=== PATIENT | male | born 1950 | race Caucasian/White ===

== ENCOUNTER 2018-05-29 21:00 | Inpatient (IN) | payer OTHER ==
[~2018-05-29] VITALS: Ht 175.3 cm; Wt 73.5 kg
[2018-05-29 20:25] VITALS: BP 147/76
[2018-05-29 21:00] VITALS: BP 147/76
[~2018-05-29 21:00] MED LIST: LISI40TA4 PO; METH10TA2 PO; NEBI10TA2 PO
--- NOTE | 2018-05-29 21:00 | NUR ---
GPS NOTES. RECEIVED PT. FROM ([facility]). PT. ARRIVED ON THE UNIT AT 2024 VIA WHEELCHAIR. PATIENT TRANSFERRED ON A 5150 HOLD DUE TO DTS. PER HOLD PT. 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 UPON FACE TO FACE ASSESSMENT, APPEARS TO REFLECT THE PRESENTATION OF THE PATIENT. PATIENT IS CURRENTLY SITTING ON BED. NO COMPLAINTS OF PAIN AND NO SIGNS OF ACUTE DISTRESS NOTED AT THIS TIME. PATIENT'S BREATHING IS UNLABORED WITH EQUAL FALL AND RISE OF THE CHEST. PATIENT IS ORIENTED X 3 AND 98% ON ROOM AIR. PATIENT IS STEADY/AMBULATORY AND CONTINENT. THE PATIENT HAS NO NEEDS AT THIS TIME. UPON ARRIVING ON THE UNIT THE PATIENT IS NOTED TO BE DEPRESSED AND AND ANXIOUS. ENDORSES HOPELESSNESS BUT DENIES ANY SI/HI/ OR HALLUCINATIONS. COOPERATED WITH ADMISSION ASSESSMENT, SKIN CLEAR. THE PATIENT IS UNDER THE CARE OF DR. VILLALPANDO AND THE MEDICAL CARE OF DR. GIRFFIN. PATIENT'S BELONGING INVENTORIED AND CHECKED FOR CONTRABAND. PATIENT'S ADVANCED DIRECTIVE PREFERENCES, IMMUNIZATIONS QUESTIONNAIRE AND NECESSARY PAPERWORK PLACED IN THE PT'S CHART. BED IS LOCKED AND LOW, BEDSIDES RAILS ARE UP X2 FOR SAFETY. WILL CONTINUE TO MONITOR Q15MNS, WITH THE HELP OF STAFF, FOR SAFETY.
[2018-05-29] MEDS ORDERED: ACETAMINOPHEN 325 MG TABLET PO PRN ×2 (22:30)
[2018-05-29] MEDS ORDERED: MAG HYDROX/AL HYDROX/SIMETH 30 ML UDC PO PRN ×2 (22:30)
[2018-05-29] MEDS ORDERED: MAGNESIUM HYDROXIDE 30 ML UDC PO PRN ×2 (22:30)
[2018-05-29] MEDS ORDERED: TEMAZEPAM 15 MG CAPSULE ONE (22:34)
[2018-05-29] MEDS: TEMAZEPAM 7.5 MG CAPSULE PO PRN (22:36)
[2018-05-29] MEDS ORDERED: HYDR-552 PO (23:07)
[2018-05-29] MEDS ORDERED: HYDR-3976 PO (23:07)
[2018-05-29] MEDS ORDERED: CLON0.1T PO (23:07)
--- NOTE | 2018-05-30 03:56 | NUR ---
INFORMATION SENT:FACESHEET , ADMIT ORDER , H&P , UR 05/28 , DISCHARGE SUMMARY TO :[facility] [phone]
[2018-05-30 07:18] LABS: CHOLESTEROL 129 mg/dL (<200); HDL CHOLESTEROL 43 mg/dL (40-60); LDL 77 mg/dL (0-99); TRIGLYCERIDES 83 mg/dL (30-150)
[2018-05-30 08:00] VITALS: BP 133/73
[2018-05-30] MEDS: LISINOPRIL (20MG) 20 MG TABLET PO SCH (08:37)
[2018-05-30] MEDS: LORAZEPAM 0.5 MG TABLET PO PRN ×3 (08:40→19:07)
--- NOTE | 2018-05-30 08:40 | NUR ---
RN NOTERS ADMINISTERED ATIVAN 1 MG PO PRN FOR ANXIETY, PER PATIENT REQUEST, V/S TAKEN BP- 133/73, P-70, CONTINUED MONITORING.
[2018-05-30] MEDS ORDERED: METHADONE HCL 10 MG TABLET PO SCH ×2 (09:00)
[2018-05-30] MEDS: HYDROCODONE/APAP 10/325MG 1 EA TABLET PO PRN ×4 (09:12→21:33)
--- NOTE | 2018-05-30 09:12 | NUR ---
RN NOTES ADMINISTERED NARCO 10/325 MG PO PRN FOR GENERALIZED PAIN 10/10 PER PATIENT REQUEST, V/S TAKEN 135/76, P-74, ENCOURAGED TO INCREASE FLUID INTAKE. CONTINUED MONITORING.
[2018-05-30] MEDS ORDERED: CLONIDINE HCL 0.1 MG TABLET PO PRN (09:30)
[2018-05-30] MEDS ORDERED: HYDROCODONE/APAP 5/325MG 1 EACH TABLET PO PRN (09:30)
[2018-05-30 09:36] LABS: BASOPHILS % (AUTO) 0.7 % (0.0-2.0); EOSINOPHILS % (AUTO) 3.5 % (0.0-6.0); HEMATOCRIT 37 % (39-51); HEMOGLOBIN 12.7 g/dL (13.5-17.5); LYMPHOCYTES # (AUTO) 2.2 /CMM (0.8-4.8); LYMPHOCYTES % (AUTO) 37.9 % (20.0-44.0); MEAN CORPUSCULAR HEMOGLOBIN 32 PG (26.0-33.0); MEAN CORPUSCULAR HGB CONC 34 g/dl (31.0-36.0); MEAN CORPUSCULAR VOLUME 94 fL (80-96); MONOCYTES # (AUTO) 0.4 /CMM (0.1-1.30); MONOCYTES % (AUTO) 6.7 % (2.0-12.0); NEUTROPHILS % (AUTO) 51.2 % (43.0-81.0); PLATELET COUNT (AUTO) 139 /CMM (150-450); RED BLOOD CELL COUNT(AUTO) 3.97 MIL/uL (4.5-6.0); WHITE BLOOD COUNT (AUTO) 5.8 K/uL (4.3-11.0)
[2018-05-30 09:58] LABS: ALBUMIN 3.5 g/dL (3.4-5.0); BILIRUBIN,TOTAL 0.4 mg/dL (0.2-1.0); CALCIUM, SERUM 8.1 mg/dL (8.5-10.1); CREATININE 1.1 mg/dL (0.6-1.3); POTASSIUM 3.5 mmol/L (3.5-5.1); TOTAL PROTEIN, SERUM 6.6 g/dL (6.4-8.2)
--- NOTE | 2018-05-30 11:16 | NUR ---
UR Note: SW received a call from Julee ([phone]) from [facility] about sending over clinicals.
--- NOTE | 2018-05-30 11:16 | NUR ---
UR Note: JEANNINE faxed a clinical to Julee from [facility] to the fax number: [phone].
--- NOTE | 2018-05-30 13:29 | NUR ---
rn notes administered narco 10/325 mg po prn for generalized pain 07/14 per patient request, v/s taken bp-137/75, p-49, encouraged to increase fluid intake.
--- NOTE | 2018-05-30 14:38 | NUR ---
Initial Discharge Plan: Pt currently resides at [address] [place] [address]; ([phone]) with his partner and contact representative, Carmen Love ([phone]). Per pt and per his partner, they would both like the pt to return to his home upon discharge. JEANNINE will work with the pt and the MD regarding appropriate discharge planning. SW will form a safe and proper discharge.
--- NOTE | 2018-05-30 14:39 | NUR ---
JEANNINE called Carmen Love ([phone]), the pt's partner, and she stated that she wants the pt to return home upon discharge.
--- NOTE | 2018-05-30 15:11 | NUR ---
RN NOTES ADMINISTERED ATIVAN 1 MG PO PRN FOR ANXIETY PER PATIENT REQUEST. V/S TAKEN BP- 147/68, P-68, CONTINUED MONITORING.
[2018-05-30 16:01] VITALS: BP 148/81
--- NOTE | 2018-05-30 17:30 | NUR ---
RN NOTES ADMINISTERED NARCO 10/325 MG PO PRN FOR GENERALIZED PAIN 10/10 PER PATIENT REQUEST. BP- 147/75, P-69, CONTINUED MONITORING.
--- NOTE | 2018-05-30 19:07 | NUR ---
RN NOTES ADMINISTERED ATIVAN 1 MG PO PRN FOR ANXIETY PER PATIENT REQUEST. V/S STABLE CONTINUED MONITORING.
[2018-05-30 19:30] VITALS: BP 154/80
[2018-05-30] MEDS ORDERED: MIRTAZAPINE 15 MG TABLET PO ONE (21:00)
--- NOTE | 2018-05-30 21:30 | NUR ---
GPS RN NOTES RN NOTES ADMINISTERED NARCO 10/325 MG PO PRN FOR PAIN 06/13 PER PATIENT REQUEST. WILL CONTINUED TO MONITOR FOR SAFETY.
[2018-05-30] MEDS: METOPROLOL TARTRATE 25 MG TABLET PO SCH (21:33)
--- NOTE | 2018-05-30 22:30 | NUR ---
RN NOTES ADMINISTERED RESTORIL 15 MG PO PRN FOR INSOMNIA PER PATIENT REQUEST. WILL CONTINUE TO MONITOR FOR SAFETY.
[2018-05-30] MEDS: TEMAZEPAM 7.5 MG CAPSULE PO PRN (22:39)
[2018-05-31] MEDS: LISINOPRIL (20MG) 20 MG TABLET PO SCH (07:45)
[2018-05-31] MEDS: METOPROLOL TARTRATE 25 MG TABLET PO SCH ×2 (07:46→21:00)
[2018-05-31] MEDS: HYDROCODONE/APAP 10/325MG 1 EA TABLET PO PRN ×4 (07:46→20:40)
[2018-05-31 08:00] VITALS: BP 163/87
[2018-05-31] MEDS: LORAZEPAM 0.5 MG TABLET PO PRN ×3 (09:23→18:00)
[2018-05-31 16:04] VITALS: BP 161/87
[2018-05-31 19:30] VITALS: BP 117/58
[2018-05-31] MEDS: TEMAZEPAM 7.5 MG CAPSULE PO PRN (21:09)
[2018-05-31] MEDS: MIRTAZAPINE 15 MG TABLET PO SCH (21:48)
[2018-06-01] MEDS: HYDROCODONE/APAP 10/325MG 1 EA TABLET PO PRN ×4 (05:23→19:49)
[2018-06-01] MEDS: LORAZEPAM 0.5 MG TABLET PO PRN ×3 (07:08→17:37)
[2018-06-01 08:00] VITALS: BP 145/84
[2018-06-01] MEDS: METOPROLOL TARTRATE 25 MG TABLET PO SCH ×2 (08:23→21:09)
[2018-06-01] MEDS: LISINOPRIL (20MG) 20 MG TABLET PO SCH (08:24)
[2018-06-01] MEDS ORDERED: METHADONE HCL 10 MG TABLET PO SCH (11:30)
[2018-06-01] MEDS: METHADONE HCL 10 MG TABLET PO SCH (11:30)
--- NOTE | 2018-06-01 11:36 | NUR ---
ADMINISTERED NARCO 10/325 MG PO PRN FOR GENERALIZED PAIN 07/14 PER PATIENT REQUEST, V/S TAKEN BP-135/67, P-70, CONTINUED MONITORING.
[2018-06-01] MEDS: GABAPENTIN 100 MG CAPSULE PO SCH ×2 (13:03→17:37)
--- NOTE | 2018-06-01 13:04 | NUR ---
rn notes administered ativan 1 mg po prn for anxiety per patient request, also administered scheduled medication, v/s taken bp-123/67, p-62, continued monitoring..
--- NOTE | 2018-06-01 15:42 | NUR ---
RN NOTES ADMINISTERED NARCO 10/325 MG PO PRN FOR GENERALIZED PAIN 07/14 PER PATIENT REQUEST, V/S TAKEN BP-132/66, P-46, CONTINUED MONITORING.
[2018-06-01 15:59] VITALS: BP 132/66
--- NOTE | 2018-06-01 17:37 | NUR ---
RN NOTES ADMINISTERED ATIVAN 1 MG PO PRN FOR ANXIETY PER PATIENT REQUEST, V/S TAKEN BP- 132/66, P-50, CONTINUED MONITORING.
[2018-06-01 19:37] VITALS: BP 147/88
[2018-06-01] MEDS: MIRTAZAPINE 15 MG TABLET PO SCH (21:09)
[2018-06-01] MEDS: TEMAZEPAM 7.5 MG CAPSULE PO PRN (21:59)
[2018-06-02] MEDS: HYDROCODONE/APAP 10/325MG 1 EA TABLET PO PRN ×3 (02:28→13:30)
--- NOTE | 2018-06-02 02:28 | NUR ---
GPS RN NOTE, PATIENT HAS A COMPLAINT OF GENERALIZED BODY PAIN AT 6 OUT 10 ON THE PAIN SCALE. PATIENT VITAL SIGNS ARE STABLE. GAVE NORCO 10-325 1 TAB PO Q4HR PRN ORDERED. WILL REASSESS FOR PAIN AND I WILL CONTINUE TO MONITOR THIS PATIENT.
[2018-06-02] MEDS: LORAZEPAM 0.5 MG TABLET PO PRN ×4 (07:19→19:54)
[2018-06-02 08:00] VITALS: BP 158/95
[2018-06-02] MEDS: LISINOPRIL (20MG) 20 MG TABLET PO SCH (08:09)
[2018-06-02] MEDS: GABAPENTIN 100 MG CAPSULE PO SCH ×3 (08:10→16:19)
[2018-06-02] MEDS: METOPROLOL TARTRATE 25 MG TABLET PO SCH ×2 (08:10→20:50)
[2018-06-02] MEDS: METHADONE HCL 10 MG TABLET PO SCH (08:10)
--- NOTE | 2018-06-02 08:36 | NUR ---
GPS/RN PATIENT C/O GENERALIZED PAIN, ADMINISTERED NORCO 10/325 PER PATIENT REQUEST, WILL CONTINUE TO MONITOR.
--- NOTE | 2018-06-02 11:37 | NUR ---
UR Note: JEANNINE called Julee ([phone]) from [facility] and informed her that the pt's hold went from a 5150 to a 5250.
--- NOTE | 2018-06-02 11:37 | NUR ---
UR Note: JEANNINE faxed a clinical to Julee from [facility] to the fax number: .
--- NOTE | 2018-06-02 11:58 | NUR ---
GPS/RN PATIENT IS ANXIOUS, RESTLESS AND AGITATED, ADMINISTERED ATIVAN 1 MG, WILL CONTINUE TO MONITOR.
--- NOTE | 2018-06-02 13:30 | NUR ---
GPS/RN PATIENT C/O GENERALIZED PAIN, ADMINISTERED NORCO 10/325 PER PATIENT REQUEST, WILL CONTINUE TO MONITOR.
[2018-06-02 16:00] VITALS: BP 140/84
--- NOTE | 2018-06-02 16:19 | NUR ---
GPS/RN PATIENT IS ANXIOUS, RESTLESS AND AGITATED, ADMINISTERED ATIVAN 1 MG, WILL CONTINUE TO MONITOR.
[2018-06-02 19:44] VITALS: BP 165/94
[2018-06-02] MEDS: TEMAZEPAM 7.5 MG CAPSULE PO PRN (20:51)
[2018-06-02] MEDS ORDERED: MIRTAZAPINE 15 MG TABLET PO SCH (22:00)
--- NOTE | 2018-06-03 07:50 | NUR ---
GPS/RN PATIENT C/O BACK PAIN, ADMINISTERED NORCO 10/325 PER PATIENT REQUEST, WILL CONTINUE TO MONITOR.
[2018-06-03 08:00] VITALS: BP 136/91
[2018-06-03] MEDS: GABAPENTIN 100 MG CAPSULE PO SCH ×3 (08:05→16:12)
[2018-06-03] MEDS: HYDROCODONE/APAP 10/325MG 1 EA TABLET PO PRN ×2 (08:06→12:33)
[2018-06-03] MEDS: LISINOPRIL (20MG) 20 MG TABLET PO SCH (08:06)
--- NOTE | 2018-06-03 08:06 | NUR ---
GPS/RN PATIENT C/O BACK PAIN, ADMINISTERED NORCO 10/325 PER PATIENT REQUEST, WILL CONTINUE TO MONITOR.
[2018-06-03] MEDS: METOPROLOL TARTRATE 25 MG TABLET PO SCH (08:07)
--- NOTE | 2018-06-03 10:58 | NUR ---
UR Note: JEANNINE faxed a clinical to Julee from [facility] to the fax number: .
--- NOTE | 2018-06-03 11:36 | NUR ---
UR Note: SW received a message from Jesus ([phone]) from [facility] who informed the SW that the pt's case would have to go to a doc to doc if he is not discharged today as his last authorized day.
--- NOTE | 2018-06-03 11:37 | NUR ---
SW informed the pt's psychiatrist, Dr. Malhotra ([phone]), that the pt's insurance wants to have the case go to a doc to doc and so the psychiatrist decided that the pt does not need to be at the inpatient level any longer and decided to discharge the pt tonight.
--- NOTE | 2018-06-03 12:26 | NUR ---
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
--- NOTE | 2018-06-03 12:33 | NUR ---
GPS/RN PATIENT C/O GENERALIZED PAIN, ADMINISTERED NORCO 10/325 PER PATIENT REQUEST, WILL CONTINUE TO MONITOR.
--- NOTE | 2018-06-03 13:56 | NUR ---
SW received a call from [facility] ([phone]) and was asked to fax the pt's information because the pt wants to be admitted to their facility for rehab purposes.
--- NOTE | 2018-06-03 13:57 | NUR ---
JEANNINE faxed a referral to [facility] from [facility] at the fax number: [phone].
--- NOTE | 2018-06-03 14:31 | NUR ---
JEANNINE informed [facility] ([phone]) that the fax was not going through and so he provided the SW with an email to send the referral to. The email was .
[2018-06-03 16:00] VITALS: BP 161/85
--- NOTE | 2018-06-03 16:12 | NUR ---
Pt was accepted to [facility] via the [facility] ([phone]).
--- NOTE | 2018-06-03 16:13 | NUR ---
Discharge Note: Pt was discharged to [facility] [place] [address] [place] [address]; ([phone]). Pt will be transported via taxi for $19. Upon discharge, the pt was in a euthymic mood with an anxious affect. Pt was provided with three substance abuse referrals upon discharge. Pt denied hallucinations as well as suicidal and homicidal ideation. Pt with be under the care of psychiatrist, Dr. Ashley Sol[place], [place] [address] [place] [address]; and large animal veterinarian, Dr. Juan [place], [place] [address] [place] [address]; ([phone]). Referrals: [facility] [address] [place] [address] Tel. [facility] [address] [place] Provider Mental Health Treatment Tele-dermatology [facility] Services [facility] [place] [address] [place] [address] [facility] [address] [place] [address]
--- NOTE | 2018-06-03 16:25 | NUR ---
GPS/RN PATIENT BP 161/85, ADMINISTERED CATAPRES 0.1 MG , WILL CONTINUE TO MONITOR.
[2018-06-03 16:56] VITALS: BP 142/88
--- NOTE | 2018-06-03 16:56 | NUR ---
GPS/RN BP 142/88, HR 60
--- NOTE | 2018-06-03 17:10 | NUR ---
GPS/RN PATIENT CLEARED FOR DISCHARGE TO [facility] BY DR LIGHT AND DR FENG. BOTH DR'S RECONCILED MEDICATION, PRESCRIPTIONS INCLUDED IN PACKET. AFTER CARE PLAN, EXIT CARE AND MEDICATIONS EXPLAINED TO PATIENT, VERBALIZED UNDERSTANDING. BELONGINGS AND VALUABLES RETURNED TO PATIENT, PATIENT DENIES SI/HI/AH UPON DISCHARGE, PSYCHIATRIC TREATMENT PLANS MET. LEFT UNIT CALM, COOPERATIVE, STABLE CONDITION WITH REGIONAL PROGRAM MANAGER AT SIDE.
--- NOTE | 2018-06-04 13:52 | NUR ---
UR Note: JEANNINE faxed a discharge clinical to Jesus from [facility] to the fax number: .
== END 2018-06-03 18:16 | DRG 881 ==
LOC: GPS 21:00
PROVIDERS: ADMIT Psychiatry & Neurology Psychiatry; ATTEND Psychiatry & Neurology Psychiatry
DX: F32.9 Major depressive disorder, single episode, unspecified (principal); R45.851 Suicidal ideations; F29 Unspecified psychosis not due to a substance or known physiological condition; F41.9 Anxiety disorder, unspecified; F13.11 Sedative, hypnotic or anxiolytic abuse, in remission; F11.11 Opioid abuse, in remission; T40.3X1 Poisoning by methadone, accidental (unintentional); Z79.899 Other long term (current) drug therapy; I10 Essential (primary) hypertension; G89.29 Other chronic pain
CPT/HCPCS: 36415; 80053-TC; 80061-TC; 85025-TC